=== PATIENT | female | born 1935 | race Caucasian/White ===

== ENCOUNTER 2017-02-26 06:21 | Day surgery (SDC) | payer BC ==
[~2017-02-26] VITALS: Ht 167.6 cm; Wt 70.3 kg
[2017-02-26] MEDS ORDERED: PROPOFOL 200MG/ 20ML VIAL (DIPRIVAN) IV ONE (06:22)
[2017-02-26] MEDS ORDERED: MIDAZOLAM HCL 5 MG/ML VIAL (VERSED) IV ONE (06:22)
[2017-02-26] MEDS ORDERED: fentaNYL CITRATE/PF 100 MCG/2 ML AMP IVP ONE (06:22)
[2017-02-26] MEDS ORDERED: SEVOFLURANE 15 MIN GAS INH ONE (06:22)
[2017-02-26] MEDS ORDERED: LR 1,000 ML IV.SOLN IV ONE (06:22)
[2017-02-26] MEDS ORDERED: ONDANSETRON HCL 4 MG/2 ML VIAL IVP ONE (06:22)
[2017-02-26] MEDS ORDERED: BUPIVACAINE /PF 0.25% 30 ML VIAL INJ ONE (06:22)
[2017-02-26] MEDS ORDERED: NS IRRIG SOLN 1000 ML IR ONE (06:22)
[2017-02-26] MEDS ORDERED: CLINDAMYCIN 600 mg/50mL D5W 50 ML IV ONE (07:00)
[2017-02-26] MEDS ORDERED: D5/0.45 NS 1,000 ML IV SCH (09:50)
[2017-02-26] MEDS ORDERED: HYDROcodone/ACETAMIN 5-325 MG TAB (NORCO/ VICODIN) PO PRN ×2 (10:00)
[2017-02-26] MEDS ORDERED: HYDROmorphone 1 MG INJ. 1 MG/ML AMPUL IVP PRN (10:00)
[2017-02-26 11:09] VITALS: BP_SYST 124
== END 2017-02-26 12:15 | disposition home or self-care (01) ==
LOC: SDS 06:21 → SMU 06:22 → SDS 12:15
PROVIDERS: ATTEND Colon & Rectal Surgery
DX: C44.729 Squamous cell carcinoma of skin of left lower limb, including hip (principal); I12.9 Hypertensive chronic kidney disease with stage 1 through stage 4 chronic kidney disease, or unspecified chronic kidney disease; E11.22 Type 2 diabetes mellitus with diabetic chronic kidney disease; N18.2 Chronic kidney disease, stage 2 (mild); K21.9 Gastro-esophageal reflux disease without esophagitis; E78.5 Hyperlipidemia, unspecified; E03.9 Hypothyroidism, unspecified; K58.2 Mixed irritable bowel syndrome; Z88.0 Allergy status to penicillin; Z88.8 Allergy status to other drugs, medicaments and biological substances; J44.9 Chronic obstructive pulmonary disease, unspecified; Z87.891 Personal history of nicotine dependence; Z98.890 Other specified postprocedural states; Z79.899 Other long term (current) drug therapy; Z80.0 Family history of malignant neoplasm of digestive organs
CPT/HCPCS: 11606; 12032; 82962; 88305; J2250; J2405; J2704; J3010; J3490 ×2; J7120